=== PATIENT | male | born 1955 | race Caucasian/White ===

== ENCOUNTER 2021-05-15 09:06 | Emergency (ER) | payer OTHER, SELFPAY ==
[2021-05-15] VITALS (29 sets, daily range): BP systolic 126–171; BP diastolic 83–100; PULSE 65–88; RESP 11–22; TEMP 36.7; O2SAT 96–100
--- NOTE | ~2021-05-15 | CT_ITS ---
EXAMINATION: CT brain wo con DATE: 05/15/2021 10:12 INDICATION: Seizure TECHNIQUE: Computed tomography (CT) of the head was performed without intravenous contrast. Sagittal and coronal reconstructions were performed. The mA was adjusted according to patient size. Iterative reconstruction technique was employed. The dose-length product was 681.00 mGy-cm. COMPARISON: None FINDINGS: Evaluation is severely limited along a couple approximately 1 cm thick bands across the vertex and ce ntral portion of the brain resulting from dense metallic streak artifact related to an external halo fixation. The fixator extends to contact the outer table of the skull without evident fracture or pen etration of the cortex. No acute intracranial hemorrhage, acute infarction or abnormal extra axial fl uid collection. Ventricles are normal and symmetric. No mass/mass effect. Mild to moderate mucosal th ickening throughout the paranasal sinuses. The orbits and mastoid air cells are normal. Changes of bi lateral intraocular lens replacement. IMPRESSION: 1. No acute intracranial process. Evaluation is severely limited along a couple 1 cm thick bands of m etallic streak artifact extending across the brain resulting from external halo fixation device. Reviewed, dictated and finalized at location A. [employer] IMPRESSION: 1. No acute intracranial process. Evaluation is severely limited along a couple 1 cm thick bands of metallic streak artifact extending across the brain result ing from external halo fixation device.
--- NOTE | 2021-05-15 09:29 | ECG_ITS ---
Measurements Intervals [place] Rate: 74 P: 40 MO: 168 QRS: -12 QRSD: 117 T: 97 QT: 406 QTc: 451 Interpretive Statements SINUS RHYTHM POSSIBLE LEFT ATRIAL ENLARGEMENT INCOMPLETE RIGHT BUNDLE BRANCH BLOCK BORDERLINE T WAVE ABNORMALITY- ANTEROLAT/HIGH LAT LEADS BASELINE ARTIFACT- II, V1, V3-V6 BORDERLINE ECG Electronically Signed On 05-15-2021 10:02:09 [employer] by Edgar Aranda D.O.
[2021-05-15 10:13] LABS: Basophils Percent Auto 0.5 % (0.2-1.2); Eosinophils Absolute Auto 0.2 K/mm3 (0-0.3); Eosinophils Percent Auto 1.8 % (0-4.4); Hematocrit 43.2 % (42.0-52.0); Hemoglobin 14.9 g/dL (14.0-18.0); Immature Granulocyte Absolute 0.05 K/mm3 (0.00-0.031); Immature Granulocyte Percent A 0.6 % (0-0.5); Lymphocytes Absolute Auto 0.88 K/mm3 (0.9-3.2); Lymphocytes Percent Auto 9.9 % (18.3-44.2); Mean Corpuscular HGB Conc 34.5 g/dl (32-36); Mean Corpuscular Hemoglobin 32.3 pg (26-34); Mean Corpuscular Volume 93.7 fl (80-100); Mean Platelet Volume 9.7 fl (7.4-10.4); Monocytes Absolute Auto 0.7 K/mm3 (0.1-0.6); Monocytes Percent Auto 8.3 % (2.6-8.5); Neutrophils Percent Auto 78.9 % (45.5-73.1); Platelet Count Result 326 k/mm3 (150-375); Red Blood Count 4.61 M/mm3 (4.6-6.20); Red Cell Distribution Width 12.5 % (11.5-14.5); White Blood Count 8.9 K/mm3 (4.5-10.0)
[2021-05-15 10:22] LABS: Alanine Aminotransferase 66 U/L (4-50); Albumin Level 3.9 g/dL (3.5-5.1); Alkaline Phosphatase 83 U/L (38-126); Anion Gap 6 mmol/L (8-16); Aspartate Amino Transferase 51 U/L (17-59); Bilirubin,Total 0.5 mg/dL (0.2-1.3); Blood Urea Nitrogen 18 mg/dL (9-20); Calcium 8.7 mg/dL (8.4-10.2); Carbon Dioxide 31 mmol/L (22-30); Chloride 95 mmol/L (98-107); Estimated CRCL calculation 92 ml/min; Estimated Glomerular Filt Rate > 60; Glucose 118 mg/dL (65-110); Potassium 3.4 mmol/L (3.4-5.0); Sodium 132 mmol/L (137-145)
--- NOTE | 2021-05-15 13:16 | ED.GENADULT ---
HPI - General Adult General Chief complaint: Unspecified Stated complaint: seizure like activity Time Seen by Provider: 05/15/21 09:10 Source: patient Mode of arrival: EMS Limitations: no limitations History of Present Illness HPI narrative: 65-year-old with a history of hypertension, burst fracture of C1 s/p halo traction placed at [facility] on 1224 discharged to [facility]. Was brought in via ambulance with complaints of head shaking and eyes rolled back. Patient was trying to get out of the bed to eat breakfast. He denied any headache or chest pain. No bladder or bowel incontinence patient states that he did not lose his consciousness. Onset (ago): hour(s) (1) Severity: mild Relieving factors: none Exacerbating factors: none Associated symptoms: denies other symptoms Related Data Allergies Allergy/AdvReac Type Severity Reaction Status Date / Time No Known Allergies Allergy Verified 05/15/21 09:21 Review of Systems Review of Systems: All systems reviewed & are unremarkable except as noted in HPI and below Eyes: Eyes: Reports no additional eye complaints ENT: Reports system reviewed and no additional complaints, except as documented Cardiovascular: Cardiovascular: Reports no additional cardiovascular complaints Respiratory: Respiratory: Reports no additional respiratory complaints Gastrointestinal: Gastrointestinal: Reports no additional gastrointestinal complaints Musculoskeletal: Musculoskeletal: Reports no additional musculoskeletal complaints Integumentary/Breasts: Skin/Breast: Reports system reviewed and no additional complaints, except as docu Neurologic: Reports system reviewed and no additional complaints, except as documented and Reports as per [facility] Social History Social History Smoking status: Never smoker Exam Narrative: GENERAL: Well-appearing, well-nourished, and in no acute distress. HEAD: Normocephalic, has sutured scalp laceration , has Halo in place EYES: PERRLA and EOMI. ENT: Nares clear, no rhinorrhea or epistaxis. Mucous membranes moist. NECK: Supple. CHEST: Clear to auscultation. No respiratory distress. HEART: Regular rate and rhythm. No murmur heard. Normal peripheral pulses. ABDOMEN: Soft, nontender, nondistended, normal active bowel sounds. EXTREMITIES: Normal range of motion. No edema. SKIN: Warm, dry, no rash. NEURO: No focal deficits. Alert and oriented x3. PSYCH: Normal mood and affect. Course Course Emergency Course: Patient comfortably laying on the stretcher in no discomfort had no further episodes here in the ER. I have reviewed all the lab work and inform the patient. I discussed with neurology at [facility]. Do not suspect this is a seizure. As patient has no further episodes patient could be discharged to the rehab center and follow-up with neurosurgery as scheduled. Patient does feel comfortable going back to the rehab center. Vital Signs Vital signs: Vital Signs Temperature 36.7 C 05/15/21 09:10 Pulse Rate 88 05/15/21 09:10 Respiratory Rate 20 05/15/21 09:10 Blood Pressure 145/90 H 05/15/21 09:10 Pulse Oximetry 96 05/15/21 09:10 Temperature 36.7 C 05/15/21 09:10 Pulse Rate 74 05/15/21 12:01 Respiratory Rate 13 05/15/21 12:01 Blood Pressure 159/91 H 05/15/21 12:01 Pulse Oximetry 98 05/15/21 12:01 Medical Decision Making Vital Signs Vital Signs: Vital Signs Temperature 36.7 C 05/15/21 09:10 Pulse Rate 88 05/15/21 09:10 Respiratory Rate 20 05/15/21 09:10 Blood Pressure 145/90 H 05/15/21 09:10 Pulse Oximetry 96 05/15/21 09:10 Temperature 36.7 C 05/15/21 09:10 Pulse Rate 74 05/15/21 12:01 Respiratory Rate 13 05/15/21 12:01 Blood Pressure 159/91 H 05/15/21 12:01 Pulse Oximetry 98 05/15/21 12:01 Lab Data Result diagrams: 05/15/21 09:58 05/15/21 09:58 Labs: [place]
[2021-05-15] MEDS: oxyCODONE HCL (*CRX) 5 MG TAB IR PO (14:40)
== END 2021-05-15 15:34 ==
PROVIDERS: Emergency Provider Family Medicine; PCP Family Medicine
DX: R55 Syncope and collapse (principal); S12.000A Unspecified displaced fracture of first cervical vertebra, initial encounter for closed fracture; I10 Essential (primary) hypertension; X58.XXXA Exposure to other specified factors, initial encounter; Y93.73 Activity, racquet and hand sports
CPT/HCPCS: 36415; 70450; 80053; 85025; 93005; 99284; A9270